=== PATIENT | female | born 1970 | race African-American/Black ===

== ENCOUNTER 2017-03-16 02:55 | Emergency (ER) | payer OTHER ==
[~2017-03-16] VITALS: Ht 157.5 cm; Wt 63.5 kg
--- NOTE | ~2017-03-16 | EKG ---
PATIENT: NASIR SEVILLA UNIT #: [id number] Ventricular Rate: 69 BPM Atrial Rate: 69 BPM P-R Interval: 118 ms QRS Duration: 86 ms Q-T Interval: 388 ms QTC Calculation(Bezet): 415 ms P [place]: 74 degrees Calculated R [place]: 68 degrees Calculated T [place]: 56 degrees Diagnosis Line: Normal sinus rhythm Diagnosis Line: Normal ECG Diagnosis Line: No previous ECGs available Diagnosis Line: Confirmed by TANGELA WILLIAM MD ([id number]) on 03/16/2017 Diagnosis Line: 6:28:08 PM INTERPRETING MD: STEWART RODRIGUEZ
--- NOTE | ~2017-03-16 | CR72 ---
[facility] A Service of [facility] RADIOLOGY TEXT RESULTS PATIENT: NASIR SEVILLA LOCATION: [facility] : 74 UNIT #: [id number] AGE: [address]: Morro Chambers MD SEX: F ORDER DR: [id number] [facility] [address] [place], [place] [address] [id number] E MR#: [id number] #: [id number] NAME: NASIR SEVILLA. : 1970 SEX: F STUDY DATE/TIME: 03/16/2017 05:09 UNIT: [facility] ROOM: STUDY DESCRIPTION: CR Chest Single View Portable Attending Physician: Morro Chambers M.D. Ordering Physician: Jamal Ramos M.D. Primary Care Physician: [facility], [facility]. MEDICAL IMAGING REPORT This report is preliminary unless electronic signature is present EXAM Portable chest, 03/16 at 05:09 INDICATION Chest pain and shortness of air for 1 day. COMPARISON 07/15/2015 FINDINGS A single AP portable view of the chest shows both lungs to be clear. The heart is normal in size. The mediastinal contour is normal. No significant bone abnormalities are seen. IMPRESSION Normal portable chest. Dictated by... Jamal Weeks Jr., M.D. THIS IS AN ELECTRONICALLY VERIFIED REPORT Jamal Weeks Jr., M.D. at 03/17/2017 5:52 AM LAURA/[place] TD: 03/16/2017 10:37 JOB #: [id number] MEDICAL IMAGING REPORT Page 1 of 1 COPY
[~2017-03-16 02:55] MED LIST: CIPRO PO; IBUPROFEN PO; LORTAB 5/500 TA1 TA2 PO; VICODIN 5/500 T1 TAB PO
[2017-03-16 05:13] LABS: BASOPHIL% 0.5 % (0-2.5); EOSINOPHIL# 0.1 X10e3 (0-0.7); EOSINOPHIL% 1.7 % (0.0-7.0); HEMATOCRIT 43.7 % (35.0-45.0); HEMOGLOBIN 14.7 gm/dL (12.0-16.0); LYMPHOCYTE# 3.1 X10e3 (1.0-3.5); MEAN CELL VOLUME 92.3 FL (83-96); MEAN CORPUSCULAR HEMOGLOBIN 31.1 PG (28-34); MEAN CORPUSCULAR HGB CONC 33.7 g/dL (30-36); MEAN PLATELET VOLUME 9.3 FL (6.5-11.5); MONOCYTE# 0.3 X10e3 (0-1.0); MONOCYTE% 6.4 % (3.0-12.0); NEUTROPHIL# 1.7 X10e3 (1.5-7.1); NEUTROPHIL% 32.4 % (40-75); PLATELET COUNT 155 X10e3 (140-420); RED BLOOD COUNT 4.74 X10e (3.90-5.30); RED CELL DISTRIBUTION WIDTH 13.4 % (11.0-15.5); WHITE BLOOD COUNT 5.3 X10e3 (4.0-10.5)
[2017-03-16 05:15] LABS: DIFF IND YES
[2017-03-16 05:18] LABS: POC - CKMB 1.3 ng/mL (0.0-7.9); POC - TROPONIN <0.05 ng/mL (<=0.05)
[2017-03-16 05:36] LABS: ALBUMIN SERUM 4.2 g/dL (3.5-5.0); BILIRUBIN, DIRECT 0.2 mg/dL (0.0-0.2); BILIRUBIN,INDIRECT 0.2 mg/dL (0.0-0.9); BILIRUBIN,TOTAL 0.4 mg/dL (0.2-2.0); BUN/CREATININE RATIO 14.44; CALCIUM SERUM 9.6 mg/dL (8.4-10.2); CREATININE SERUM 0.9 mg/dL (0.6-1.4); GLOM FILT RATE Estimated 90.2 mL/min (>60); POTASSIUM 4.2 mmol/L (3.5-5.1); PROTEIN TOTAL SERUM 7.4 g/dL (6.0-8.3)
[2017-03-16 05:48] LABS: PLATELET ESTIMATE NORMAL (NORMAL)
[2017-03-16 06:58] LABS: POC - CKMB <1.0 ng/mL (0.0-7.9); POC - TROPONIN <0.05 ng/mL (<=0.05)
== END 2017-03-16 07:12 | disposition home or self-care (01) ==
LOC: CED 02:55
PROVIDERS: Emergency Medicine
DX: R07.89 Other chest pain (principal); F17.200 Nicotine dependence, unspecified, uncomplicated; Z88.5 Allergy status to narcotic agent
CPT/HCPCS: 36415; 71010; 80048; 80076; 82553; 83880; 84484; 85025; 93005; 96374; 99285; J1885

== ENCOUNTER 2017-03-18 20:04 | Emergency (ER) | payer OTHER ==
--- NOTE | ~2017-03-18 | CR72 ---
[facility] A Service of [facility] & [facility] RADIOLOGY TEXT RESULTS PATIENT: NASIR SEVILLA LOCATION: [facility] : 74 UNIT #: [id number] AGE: [address]: Kailash Oleary MD SEX: F ORDER DR: [id number] [facility] [address] [place], [place] [address] [id number] E MR#: [id number] Acc #: [id number] NAME: NASIR SEVILLA. : 1970 SEX: F STUDY DATE/TIME: 03/18/2017 20:19 UNIT: [facility] ROOM: STUDY DESCRIPTION: CR Chest Single View Portable Attending Physician: Kailash Oleary M.D. Ordering Physician: Ed Ernie Paula M.D. Primary Care Physician: [facility] MEDICAL IMAGING REPORT This report is preliminary unless electronic signature is present EXAM Portable chest HISTORY Right side chest pain today. FINDINGS Cardiac size and pulmonary vascularity are normal. No infiltrates or effusions. Mild mid-right thoracic curve. Remainder of the chest is negative. IMPRESSION No acute findings. Dictated by... Javier Ku M.D. THIS IS AN ELECTRONICALLY VERIFIED REPORT Javier Ku M.D. at 03/19/2017 11:25 PM CRYSTAL/hema TD: 03/19/2017 03:23 JOB #: [id number] MEDICAL IMAGING REPORT Page 1 of 1 COPY
--- NOTE | ~2017-03-18 | EKG ---
PATIENT: NASIR SEVILLA UNIT #: [id number] Ventricular Rate: 63 BPM Atrial Rate: 63 BPM P-R Interval: 124 ms QRS Duration: 80 ms Q-T Interval: 394 ms QTC Calculation(Bezet): 403 ms P [place]: 61 degrees Calculated R [place]: 53 degrees Calculated T [place]: 34 degrees Diagnosis Line: Normal sinus rhythm Diagnosis Line: Normal ECG Diagnosis Line: When compared with ECG of 16-MAR-2017 03:02, Diagnosis Line: No significant change was found Diagnosis Line: Confirmed by VINICIUS JOHNSON MD ([id number]) on Diagnosis Line: 03/18/2017 10:55:15 PM INTERPRETING MD: GLADYS
[2017-03-18 20:42] LABS: BASOPHIL% 0.7 % (0-2.5); EOSINOPHIL# 0.1 X10e3 (0-0.7); EOSINOPHIL% 1.2 % (0.0-7.0); HEMATOCRIT 44.7 % (35.0-45.0); LYMPHOCYTE# 2.5 X10e3 (1.0-3.5); LYMPHOCYTE% 49.9 % (17.0-45.0); MEAN CELL VOLUME 91.5 FL (83-96); MEAN CORPUSCULAR HEMOGLOBIN 30.7 PG (28-34); MEAN CORPUSCULAR HGB CONC 33.6 g/dL (30-36); MEAN PLATELET VOLUME 8.8 FL (6.5-11.5); MONOCYTE# 0.3 X10e3 (0-1.0); MONOCYTE% 5.9 % (3.0-12.0); NEUTROPHIL# 2.1 X10e3 (1.5-7.1); NEUTROPHIL% 42.3 % (40-75); PLATELET COUNT 165 X10e3 (140-420); RED BLOOD COUNT 4.88 X10e (3.90-5.30); RED CELL DISTRIBUTION WIDTH 13.2 % (11.0-15.5)
[2017-03-18 20:43] LABS: DIFF IND NO
[2017-03-18 20:58] LABS: POC - CKMB <1.0 ng/mL (0.0-7.9); POC - TROPONIN <0.05 ng/mL (<=0.05)
[2017-03-18 21:07] LABS: ALBUMIN SERUM 4.8 g/dL (3.5-5.0); BILIRUBIN, DIRECT 0.1 mg/dL (0.0-0.2); BILIRUBIN,INDIRECT 0.4 mg/dL (0.0-0.9); BILIRUBIN,TOTAL 0.5 mg/dL (0.2-2.0); BUN/CREATININE RATIO 16.66; CALCIUM SERUM 9.7 mg/dL (8.4-10.2); CREATININE SERUM 0.9 mg/dL (0.6-1.4); GLOM FILT RATE Estimated 90.2 mL/min (>60); POTASSIUM 3.9 mmol/L (3.5-5.1); PROTEIN TOTAL SERUM 7.8 g/dL (6.0-8.3)
== END 2017-03-18 21:30 | disposition home or self-care (01) ==
LOC: CED 20:04
PROVIDERS: Emergency Medicine
DX: R07.89 Other chest pain (principal); Z79.899 Other long term (current) drug therapy; Z88.5 Allergy status to narcotic agent
CPT/HCPCS: 36415; 71010; 80048; 80076; 82553; 84484; 85025; 93005; 99285